=== PATIENT | female | born 1970 | race Caucasian/White ===

== ENCOUNTER 2023-01-03 17:33 | Emergency (ER) | payer MEDICAID ==
[~2023-01-03] VITALS: Ht 157.5 cm; Wt 89.5 kg
[~2023-01-03 17:33] MED LIST: ALPR1TAB2 PO; AMPH30TA3 PO; CARSR60C PO; CYCL-394; DEXT10TA8 PO; DULO-31 PO; DULO60CA60 PO; HYDR-4353 PO; LISI5TAB22 PO; PREG100C PO
[2023-01-03 18:06] VITALS: TEMP 100.4
[2023-01-03] MEDS ORDERED: acetaminophen 325mg tablet PO ONE (18:50)
[2023-01-03] MEDS ORDERED: ringers solution, lacted 1,000 ML IV ONE (18:50)
[2023-01-03] MEDS ORDERED: iohexol 300mg/ml 100ml inj. ONE (19:04)
[2023-01-03 19:32] LABS: BASOPHILS % (AUTO) 0.1 % (0-1); EOSINOPHILS % (AUTO) 0.1 % (0-6); HEMATOCRIT 41.3 % (35.0-45.0); HEMOGLOBIN 13.7 g/dl (12.0-16.0); LYMPHOCYTES % (AUTO) 8.9 % (21-51); MEAN CORPUSCULAR HEMOGLOBIN 28.4 PG (27.0-31.0); MEAN CORPUSCULAR HGB CONC 33.1 g/dL (33.0-36.5); MEAN CORPUSCULAR VOLUME 85.9 FL (78-98); MEAN PLATELET VOLUME 8.6 FL (7.4-10.4); MONOCYTES # (AUTO) 1.5 X10'3 (0-0.9); MONOCYTES % (AUTO) 6.5 % (2-12); NEUTROPHILS % (AUTO) 84.4 % (42-75); PLATELET COUNT 389 X10'3 (140-440); RED BLOOD COUNT 4.81 X10'6 (4.20-5.60); RED CELL DISTRIBUTION WIDTH 14.6 % (11.5-14.5); WHITE BLOOD COUNT 22.5 X10'3 (4.5-11.0)
[2023-01-03 19:41] LABS: ALANINE AMINOTRANSFERASE 12 U/L (12-78); ALBUMIN 3.2 G/DL (3.4-5.0); ALBUMIN/GLOBULIN RATIO 0.7 (1.1-1.5); ALKALINE PHOSPHATASE 112 IU/L (46-116); ANION GAP 11 (8-16); ASPARTATE AMINO TRANSFERASE 13 U/L (10-37); BILIRUBIN,TOTAL 0.5 MG/DL (0.1-1.0); BLOOD UREA NITROGEN 17 MG/DL (7-18); BUN/CREATININE RATIO 19.5 (10.0-20.0); CALCIUM 9.9 MG/DL (8.5-10.1); CHLORIDE 95 MMOL/L (99-107); CREATININE 0.87 MG/DL (0.40-0.90); GLUCOSE 238 MG/DL (70-104); POTASSIUM 3.9 MMOL/L (3.5-5.1); SODIUM 129 MMOL/L (135-145); TOTAL CARBON DIOXIDE 23.2 MMOL/L (24-32); TOTAL PROTEIN 8.1 G/DL (6.4-8.2); eCRCL 58 ML/MIN; eGFR 68 ML/MIN
[2023-01-03] MEDS ORDERED: dexamethasone inj 6 MG in dextrose 5%-water 100 ML IV STA (20:39)
[2023-01-03] MEDS ORDERED: clindamycin 600mg/D5W 50ml 50 ML IV SCH (20:41)
[2023-01-03] MEDS ORDERED: dexamethasone sod phosphate 10mg/ml inj IV ONE (20:45)
[2023-01-03] MEDS ORDERED: dexamethasone 0.5 mg/5ml unit-dose oral solution PO SCH (21:10)
[2023-01-03] MEDS ORDERED: dexamethasone 0.5 mg/5ml unit-dose oral solution PO ONE (21:10)
[2023-01-03] MEDS ORDERED: dexamethasone sod phosphate 10mg/ml inj PO ONE (21:15)
[2023-01-03 22:00] VITALS: BP 114/78; PULSE 97; RESP 14; O2SAT 95
[2023-01-03] MEDS ORDERED: CHLO118M PO (22:15)
[2023-01-03] MEDS ORDERED: CLIN-143 PO (22:15)
== END 2023-01-03 22:38 | disposition home or self-care (01) ==
LOC: ER 17:33
DX: J36 Peritonsillar abscess (principal); Z88.0 Allergy status to penicillin; Z88.8 Allergy status to other drugs, medicaments and biological substances; Z79.899 Other long term (current) drug therapy
CPT/HCPCS: 36415; 70491; 80053; 85025; 96361; 96365; 99285; J1100; J3490; J7120; Q9967